=== PATIENT | male | born 1990 | race Caucasian/White ===

== ENCOUNTER 2016-05-30 02:43 | Emergency (ER) | payer OTHER ==
[2016-05-30 02:51] VITALS: BP 144/72
--- NOTE | 2016-05-30 02:57 | ED ---
Upper Extremity Pain - HPI Summary HPI Summary: Patient accidentally bumped his right shoulder against the wall. No limitation to ROM, but wanted to be checked out. No allev factors attempted or other sites of pain. - History of Current Complaint Chief Complaint: FranklynlderClaSteven Stated Complaint: RT SHOULDER PAIN Time Seen by Provider: 05/30/16 02:45 Hx Obtained From: Patient Onset/Duration: Started Days Ago Severity Currently: None - Allergies/Home Medications Allergies/Adverse Reactions: Allergies Allergy/AdvReac Type Severity Reaction Status Date / Time No Known Allergies Allergy Verified 09/22/15 03:42 PMH/Surg Hx/FS Hx/Imm Hx Previously Healthy: Yes Endocrine/Hematology History: Denies: Hx Diabetes, Hx Thyroid Disease Cardiovascular History: Denies: Hx Hypertension, Hx Pacemaker/ICD Respiratory History: Denies: Hx Asthma, Hx Chronic Obstructive Pulmonary Disease (COPD) GI History: Denies: Hx Ulcer History: Denies: Hx Renal Disease Sensory History: Denies: Hx Hearing Aid Psychiatric History: Denies: Hx Panic Disorder - Surgical History Surgery Procedure, Year, and Place: Hernia repair at age 1. 11/15 - T & A, AND DEVIATED SEPTUM Infectious Disease History: No Infectious Disease History: Denies: Hx Hepatitis, Hx Human Immunodeficiency Virus (HIV), Traveled Outside the [place] in Last 30 Days - Social History Alcohol Use: Occasionally Substance Use Type: Reports: None Smoking Status (MU): Never Smoked Tobacco Review of Systems Negative: Weakness All Other Systems Reviewed And Are Negative: Yes Physical Exam Triage Information Reviewed: Yes Vital Signs On Initial Exam: Initial Vitals Temp Pulse Resp BP Pulse Ox 97.8 F 82 16 144/72 99 05/30/16 02:50 05/30/16 02:50 05/30/16 02:50 05/30/16 02:50 05/30/16 02:50 Vital Signs Reviewed: Yes Appearance: Positive: Well-Appearing, No Pain Distress, Well-Nourished Skin: Positive: Warm, Skin Color Reflects Adequate Perfusion, Dry Neck: Positive: Supple Respiratory/Lung Sounds: Positive: Clear to Auscultation, Breath Sounds Present Cardiovascular: Positive: Normal, RRR, Pulses are Symmetrical in both Upper and Lower Extremities Abdomen Description: Positive: Nontender, No Organomegaly, Soft Musculoskeletal: Positive: Normal, Strength/ROM Intact, Other - TTP to the humeral head. Full active and passive ROM. Neurological: Positive: Normal, Sensory/Motor Intact, Alert, Oriented to Person Place, Time, CN Intact II-III, Reflexes Intact Diagnostics - Vital Signs Vital Signs Temp Pulse Resp BP Pulse Ox 05/30/16 02:50 97.8 F 82 16 144/72 99 - Laboratory Lab Statement: Any lab studies that have been ordered have been reviewed, and results considered in the medical decision making process. Course/Dx - Diagnoses Differential Diagnosis/HQI/PQRI: Positive: Contusion, Fracture (Closed), Other - He is requesting xray, although has full active ROM without limitation. DC Home with PCP FU. Provider Diagnoses: Shoulder contusion Discharge - Discharge Plan Condition: Stable Disposition: HOME Patient Education Materials: Contusion in Adults (ED) Referrals: Adama Funes MD [Primary Care Provider] -
--- NOTE | 2016-05-30 11:41 | RAD ---
INDICATION: Right shoulder pain after striking shoulder on door frame the previous night COMPARISON: Most recent comparison radiograph is dated September 22, 2015 TECHNIQUE: 3 views of the right shoulder were obtained. FINDINGS: The adequately corticated bones are in normal alignment. Joint spaces appear maintained. No fracture, dislocation or focal bony abnormality is seen. IMPRESSION: Normal radiograph of the right shoulder. If the patient's symptoms persist, follow-up imaging is recommended.
== END 2016-05-30 03:32 | disposition home or self-care (01) ==
LOC: ED 02:43
DX: S40.011A Contusion of right shoulder, initial encounter (principal); W22.8XXA Striking against or struck by other objects, initial encounter; Y92.9 Unspecified place or not applicable
CPT/HCPCS: 99282

== ENCOUNTER 2016-06-27 11:48 | Emergency (ER) | payer OTHER ==
[2016-06-27 12:23] VITALS: BP 129/69
[2016-06-27] MEDS ORDERED: Ibuprofen TAB* 400 MG PO ONE (14:54)
--- NOTE | 2016-06-27 15:22 | RAD ---
Indication: Right humerus injury. 2 views of the right humerus demonstrates no fracture. IMPRESSION: No fracture of the right humerus is noted.
--- NOTE | 2016-06-27 15:22 | RAD ---
Indication: Right shoulder injury. 3 views of the right shoulder demonstrates no fracture. No other bone or joint abnormality is noted. IMPRESSION: No fracture of the right shoulder is noted.
--- NOTE | 2016-06-27 16:28 | UC ---
Eugenie, DoctorJennifer, scribed for Keri Rothman MD on 06/27/16 at 1529 . Shoulder Pain HPI - HPI Summary HPI Summary: 26 year old male arrived to [facility] c/o right upper pain since opening bottle cap of soda about 10:30 am today. His pain is located in the upper right arm and shoulder, which he describes as a sudden "spasm." He further reports swelling and tenderness in the upper right arm. He reports a PMHx of right shoulder pain on and off for 2-3 years, and a previous dx of frozen shoulder (right) and right bicep and rotator cuff tenderness 1 month ago. He reports an internal contusion in the right shoulder, and regularly sees Dr. Shantel slaughter [place] (PCP) and Dr. Barnes (Orthopedist) for his injury. He additionally has a PMHx of ADHD and migraines for which he takes regular medication. - History of Current Complaint Chief Complaint: UCUpperExtremity Stated Complaint: ARM COMPLAINT Time Seen by Provider: 06/27/16 14:38 Hx Obtained From: Patient Onset/Duration: Gradual Onset Timing: Constant Severity Initially: Moderate Severity Currently: Moderate Location Of Pain: Is Discrete @ - right triceps area and right ant biceps tendon area Pain Intensity: 9 Pain Scale Used: 0-10 Numeric Character: Aching Aggravating Factor(s): Movement - exacerbated while opening bottle of soda Alleviating Factor(s): Nothing Associated Signs And Symptoms: Positive: Swelling. Negative: Fever Related History: Similar Episode/Dx As - past dx of frozen shoulder (right) - Risk Factors DVT Risk Factors: Negative Septic Arthritis Risk Factor: Negative - Allergies/Home Medications Allergies/Adverse Reactions: Allergies Allergy/AdvReac Type Severity Reaction Status Date / Time No Known Allergies Allergy Verified 06/14/16 14:50 Home Medications: Home Medications Cyclobenzaprine TAB* [Flexeril 10 MG TAB*] 06/27/16 [History] Topiramate TAB(*) [Topamax 100 MG(*)] 06/27/16 [History] guanFACINE TAB* [Tenex TAB*] 06/27/16 [History] traZODone TAB* [Desyrel TAB*] 06/27/16 [History] PMH/Surg Hx/FS Hx/Imm Hx Previously Healthy: No - ADHD, migraine - Surgical History Surgical History: Yes Surgery Procedure, Year, and Place: Hernia repair at age 1. 03/02 - T & A, AND DEVIATED SEPTUM - Family History Known Family History: Positive: Other - breast cancer, grandmother - Social History Alcohol Use: Occasionally Substance Use Type: None Smoking Status (MU): Never Smoked Tobacco Review of Systems Constitutional: Other - no fever Musculoskeletal: Edema - right upper arm/shoulder, Myalgia - right upper arm/ shoulder pain and tenderness All Other Systems Reviewed And Are Negative: Yes Physical Exam Triage Information Reviewed: Yes Appearance: Well-Appearing, Well-Nourished, Pain Distress Vital Signs: Initial Vital Signs Temp 98.7 F 06/27/16 12:16 Pulse 82 06/27/16 12:16 Resp 16 06/27/16 12:16 BP 129/69 06/27/16 12:16 Pulse Ox 100 06/27/16 12:16 Vital Signs Reviewed: Yes Eyes: Positive: Conjunctiva Clear ENT: Positive: Normal ENT inspection Neck: Positive: Supple Respiratory: Positive: Lungs clear, Normal breath sounds, No respiratory distress Cardiovascular: Positive: RRR, No Murmur, Pulses Normal, Brisk Capillary Refill Abdomen Description: Negative: Splenomegaly Musculoskeletal: Positive: Strength Intact, ROM Intact - good 90 degree abduction, posterior extension pain but able to extend posteriorly, Edema @ - swelling laterally right upper arm, Other: - tenderness in triceps area of right upper arm as well as anterior aspect of right shoulder Neurological: Positive: Alert, Muscle Tone Normal Psychological Exam: Normal Skin Exam: Normal Diagnostics - Radiology Humerus X-Ray Radiology Interpretation Completed By: Radiologist - IMPRESSION: No fracture of the right humerus is noted. Shoulder X-Ray Radiology Interpretation Completed By: Radiologist - IMPRESSION: No fracture of the right shoulder is noted. Re-Evaluation - Re-Evaluation First Re-Eval Re-Evaluation Time: 15:34 Change: Unchanged Comment: 13:34 - spoke with patient about test results and discussed pt disposition. Shoulder Course/Dx - Course Course Of Treatment: doubt tendon rupture as pt does have full ROM but will have pt seek definite f/u with ortho. Advised to use sling for comfort but to do ROM exercises. - Differential Dx/Diagnosis Differential Diagnosis/HQI/PQRI: Bursitis, Fracture (Closed), Sprain, Strain, Tendonitis, Other - impingement syndrome Provider Diagnoses: right shoulder strain. tendonitis Discharge - Discharge Plan Condition: Stable Disposition: HOME Prescriptions: Ibuprofen TAB* [Motrin TAB* 800 MG] 800 mg PO Q6H #30 tab Patient Education Materials: Shoulder Sprain (ED), Tendinitis (ED) Referrals: Adama Funes MD [Primary Care Provider] - Gen Davidson MD [Medical Doctor] - 3 Days The documentation as recorded by the Doctor hou Tahera accurately reflects the service I personally performed and the decisions made by , Keri Rothman MD.
== END 2016-06-27 15:46 | disposition home or self-care (01) ==
LOC: UCEAST 11:48
DX: S43.401A Unspecified sprain of right shoulder joint, initial encounter (principal); M77.9 Enthesopathy, unspecified; F90.9 Attention-deficit hyperactivity disorder, unspecified type; X50.0XXA Overexertion from strenuous movement or load, initial encounter; Y93.G1 Activity, food preparation and clean up; Y92.9 Unspecified place or not applicable; S40.011D Contusion of right shoulder, subsequent encounter; G43.909 Migraine, unspecified, not intractable, without status migrainosus
CPT/HCPCS: 99213; A9270-GY; G0463

== ENCOUNTER 2017-03-11 01:14 | Emergency (ER) | payer OTHER ==
--- NOTE | 2017-03-11 01:49 | ED ---
Throat Pain/Nasal Congestion - HPI Summary HPI Summary: 26M presents with lesion in mouth for two weeks. He states had an abscess of tooth that was fixed by dentist and under the abscess had this lesion that dentist told him was a canker sore. He states he has not able to eat well because of the pain. He has been taking ibuprofen every 6 hours. He denies any fever. He states the pain is triggering his migraines. He states that spicy food make it worst. He has tried mouth wash and using baking soda on the area with some relief. He has no history of herpes labia. - History of Current Complaint Chief Complaint: EDDentalPain Time Seen by Provider: 03/11/17 01:29 - Allergies/Home Medications Allergies/Adverse Reactions: Allergies Allergy/AdvReac Type Severity Reaction Status Date / Time No Known Allergies Allergy Verified 03/11/17 01:22 PMH/Surg Hx/FS Hx/Imm Hx Endocrine/Hematology History: Denies: Hx Diabetes, Hx Thyroid Disease Cardiovascular History: Denies: Hx Hypertension, Hx Pacemaker/ICD Respiratory History: Denies: Hx Asthma, Hx Chronic Obstructive Pulmonary Disease (COPD) GI History: Denies: Hx Ulcer History: Denies: Hx Renal Disease Musculoskeletal History: Reports: Other Musculoskeletal History - HER[employer]ARY [employer] SENSORY NEUROPATHY, PLANTAR FIBROFISCOMYTOSIS Sensory History: Denies: Hx Hearing Aid Psychiatric History: Denies: Hx Panic Disorder - Surgical History Surgery Procedure, Year, and Place: Hernia repair at age 1. 9 - T & A, AND DEVIATED SEPTUM Infectious Disease History: No Infectious Disease History: Denies: Hx Clostridium Difficile, Hx Hepatitis, Hx Human Immunodeficiency Virus (HIV), Hx of Known/Suspected MRSA, Hx Shingles, Hx Tuberculosis, Hx Known/ Suspected VRE, Hx Known/Suspected VRSA, History Other Infectious Disease, Traveled Outside the [place] in Last 30 Days - Family History Known Family History: Positive: Other - breast cancer, grandmother - Social History Alcohol Use: Occasionally Substance Use Type: Reports: None Smoking Status (MU): Never Smoked Tobacco Review of Systems Negative: Fever Positive: Other - gum pain Negative: Chest Pain Negative: Shortness Of Breath All Other Systems Reviewed And Are Negative: Yes Physical Exam Triage Information Reviewed: Yes Vital Signs On Initial Exam: Initial Vitals Temp Pulse Resp BP Pulse Ox 97.8 F 82 14 172/84 99 03/11/17 01:18 03/11/17 01:18 03/11/17 01:18 03/11/17 01:18 03/11/17 01:18 Vital Signs Reviewed: Yes Appearance: Positive: Well-Appearing Skin: Positive: Warm, Dry Head/Face: Positive: Normal Head/Face Inspection Eyes: Positive: Normal, EOMI, MARGARITO, Conjunctiva Clear ENT: Positive: Normal ENT inspection, Pharynx normal, TMs normal Dental: Positive: Gross Decay/Caries @, Other - has white ulcer area with no surrounding erythema above tooth 11 consistent with canker sore. Negative: Percussion Tenderness @ Neck: Positive: Supple, Nontender, No Lymphadenopathy Respiratory/Lung Sounds: Positive: Clear to Auscultation, Breath Sounds Present Cardiovascular: Positive: Normal, RRR Abdomen Description: Positive: Nontender, Soft Bowel Sounds: Positive: Present Musculoskeletal: Positive: Normal Neurological: Positive: Normal Diagnostics - Vital Signs Vital Signs Temp Pulse Resp BP Pulse Ox 03/11/17 01:18 97.8 F 82 14 172/84 99 - Laboratory Lab Statement: Any lab studies that have been ordered have been reviewed, and results considered in the medical decision making process. EENT Course/Dx - Course Course Of Treatment: 26M presents with lesion in mouth for two weeks. He states had an abscess of tooth that was fixed by dentist and under the abscess had this lesion that dentist told him was a canker sore. He states he has not able to eat well because of the pain. He has been taking ibuprofen every 6 hours. He denies any fever. He states the pain is triggering his migraines. He states that spicy food make it worst. He has tried mouth wash and using baking soda on the area with some relief. He has no history of herpes labia. on exam grayish-white ulcer with no surrounding erythema above tooth 11. appears to be canker sore. will treat with steriod, mouth wash and lidocaine. patient understand and agrees with plan. - Differential Diagnoses Differential Diagnoses: Dental Abscess, Other - herpes labia, canker sore - Diagnoses Provider Diagnoses: Canker sore Discharge - Discharge Plan Condition: Good Disposition: HOME Prescriptions: Chlorhexidine MOUTHWASH 0.12%* [Peridex Mouth Wash 0.12%*] 15 ml MT BID #1 btl Clobetasol 0.05% OINT* 1 applic TOPICAL BID #1 tube Lidocaine 4% GEL* [Topicaine 4% GEL*] 1 applic TOPICAL SEE INSTRUCTIONS #1 tube Patient Education Materials: Canker Sores (ED) Referrals: Adama Funes MD [Primary Care Provider] - Additional Instructions: Swish and spit 15ml chlorehexidine twice a day apply clobestrol : Apply a small amount to the area of involvement two to three times daily. This will work better if the mucosa is dried with a piece of gauze prior to the application of the medication. Do not rinse afterward and avoid eating or drinking for 30 minutes. apply lidocaine gel to area up to 6 times a day Try lysine tablet once a day Take tyenlol or ibuprofen for pain every 6 hours Follow up with dentist Return to ED if develop any new or worsening symptoms Images - Images Dental: 1 - canker sore above
[2017-03-11] MEDS ORDERED: Lidocaine 4% GEL* 10 GM TUBE TOPICAL ONE (02:02)
[2017-03-11 02:19] VITALS: BP 140/66
== END 2017-03-11 02:23 | disposition home or self-care (01) ==
LOC: ED 01:14
DX: K12.0 Recurrent oral aphthae (principal)
CPT/HCPCS: 99282